=== PATIENT | female | born 1975 | race Caucasian/White ===

== ENCOUNTER 2016-08-10 05:36 | Inpatient (IN) | payer MEDICAID ==
[2016-08-10] VITALS (18 sets, daily range): BP systolic 101–145; BP diastolic 47–90; PULSE 69–107; TEMP 97.6–98.3
[~2016-08-10] VITALS: Ht 175.3 cm; Wt 120.5 kg
[~2016-08-10 05:36] MED LIST: AMOXICILLIN 8751 TAB PO; AMOXICILLIN875 MG PO; BIRTH CONTROL PILL; BUSPAR5 MG PO; IBIFON 600600 MG PO; LAMICTAL ODT50 MG MM; LEVAQUIN 5500 MG/TA1 PO; LEVEMIR100 U/ML SQ; NO HOME MEDICATIONS; NORCO 325 MG-51 TAB PO; NOVOLOG 100U100 U/M1 SC; PERCOCET 325 MG1 TA2 PO; PRENATAL MVI PO; PRENATAL1 TA1 PO; SPRINTEC 35 MCG1 TAB PO; WELLBUTRIN 100100 MG PO; WELLBUTRIN SR150 M1 PO; ZANTAC 150MG T150 MG PO; ZYRTEC5 MG PO
[2016-08-10 06:28] LABS: BASO % 0.4 % (0.0-2.0); EOS # 0.1 (0.0-0.7); EOS % 1.5 % (0-4.0); GRAN # 5.5 (1.4-6.5); GRAN % 64.8 % (42.2-75.2); LYMPH % 23.9 % (20.0-51.0); MEAN CELL VOLUME 80 fl (80.0-100.0); MEAN CORPUSCULAR HGB CONC 31 g/dl (33.0-37.0); MEAN PLATELET VOLUME 11.3 fl (7.4-10.4); MONO # 0.8 (0.1-0.6); MONO % 8.9 % (1.7-9.3); PLATELET COUNT 261 K/mm3 (130-400); RED BLOOD COUNT 3.78 M/mm3 (4.10-5.30); REDCELL DISTRIBUTION WIDTH-CV 16.3 % (11.5-14.5); WHITE BLOOD COUNT 8.5 K/mm3 (4.8-10.8)
[2016-08-10] MEDS ORDERED: NOVOLOG 100U100 U/M1 SQ (06:36)
[2016-08-10 06:37] LABS: HEMATOCRIT 30.3 % (37.0-47.0); HEMOGLOBIN 9.5 g/dl (12.5-16.0); MEAN CORPUSCULAR HEMOGLOBIN 25 pg (27.0-31.0)
[2016-08-10] MEDS ORDERED: CLARITIN D TAB1 TAB PO (06:37)
[2016-08-10] MEDS ORDERED: PEPCID 20MG TAB20 MG (06:37)
[2016-08-10] MEDS ORDERED: ZOVIRAX 200MG200 MG PO (06:41)
[2016-08-10] MEDS ORDERED: VENTOLIN0.09 MG IH (06:42)
[2016-08-10] MEDS ORDERED: IBU800 M1 PO (08:51)
[2016-08-10] MEDS ORDERED: PERCOCET 325 MG1 TA2 PO (08:51)
[2016-08-11 02:00] VITALS: BP 133/75; PULSE 98; TEMP 98.2
[2016-08-11 06:51] VITALS: BP 135/79; PULSE 95; TEMP 97.7
[2016-08-11 07:28] LABS: BASO % 0.2 % (0.0-2.0); EOS # 0.1 (0.0-0.7); EOS % 1.1 % (0-4.0); GRAN # 7.7 (1.4-6.5); GRAN % 77.3 % (42.2-75.2); LYMPH # 1.2 (1.2-3.4); LYMPH % 11.6 % (20.0-51.0); MEAN CELL VOLUME 83 fl (80.0-100.0); MEAN CORPUSCULAR HGB CONC 31 g/dl (33.0-37.0); MEAN PLATELET VOLUME 10.8 fl (7.4-10.4); MONO # 0.9 (0.1-0.6); MONO % 9.2 % (1.7-9.3); PLATELET COUNT 225 K/mm3 (130-400); RED BLOOD COUNT 3.39 M/mm3 (4.10-5.30); REDCELL DISTRIBUTION WIDTH-CV 16.4 % (11.5-14.5); WHITE BLOOD COUNT 9.9 K/mm3 (4.8-10.8)
[2016-08-11 07:29] LABS: HEMOGLOBIN 8.7 g/dl (12.5-16.0); MEAN CORPUSCULAR HEMOGLOBIN 26 pg (27.0-31.0)
[2016-08-11 17:27] VITALS: BP 129/93; PULSE 112; TEMP 97.8
[2016-08-11 20:00] VITALS: BP 119/79; PULSE 100; TEMP 98
[2016-08-12 09:10] VITALS: BP 137/91; PULSE 100; TEMP 97.9
== END 2016-08-12 11:45 | disposition home or self-care (01) | DRG 765 ==
LOC: OB 05:36
PROVIDERS: Obstetrics & Gynecology
PROC: 10D00Z1 Extraction of Products of Conception, Low, Open Approach (ICD-10-PCS; principal; 2016-08-10)
PROC: 0UB70ZZ Excision of Bilateral Fallopian Tubes, Open Approach (ICD-10-PCS; 2016-08-10)
DX: O34.211 Maternal care for low transverse scar from previous cesarean delivery (principal); O36.0130 Maternal care for anti-D [Rh] antibodies, third trimester, not applicable or unspecified; N85.8 Other specified noninflammatory disorders of uterus; O09.523 Supervision of elderly multigravida, third trimester; O99.824 Streptococcus B carrier state complicating childbirth; Z40.09 Encounter for prophylactic removal of other organ; O24.420 Gestational diabetes mellitus in childbirth, diet controlled; O99.02 Anemia complicating childbirth; D64.9 Anemia, unspecified; Z80.41 Family history of malignant neoplasm of ovary; Z3A.39 39 weeks gestation of pregnancy; Z37.0 Single live birth
CPT/HCPCS: J0690; J1885; J2175; J2270; J2370; J2405; J2590; J2790; J7120

== ENCOUNTER 2016-08-15 16:18 | Emergency (ER) | payer MEDICAID ==
[~2016-08-15] VITALS: Ht 175.3 cm; Wt 121.8 kg
[~2016-08-15 16:18] MED LIST changes: +CLARITIN D TAB1 TAB PO; +IBU800 M1 PO; +NOVOLOG 100U100 U/M1 SQ; +PEPCID 20MG TAB20 MG; +VENTOLIN0.09 MG IH; +ZOVIRAX 200MG200 MG PO
[2016-08-15 16:21] VITALS: TEMP 98.9
[2016-08-15 17:35] VITALS: BP 154/90; PULSE 85
== END 2016-08-15 17:35 | disposition home or self-care (01) ==
LOC: COL.ER 16:18
DX: O90.89 Other complications of the puerperium, not elsewhere classified (principal)

== ENCOUNTER 2017-03-02 07:21 | Emergency (ER) | payer MEDICAID ==
[~2017-03-02] VITALS: Ht 175.3 cm; Wt 109.1 kg
[2017-03-02 07:24] VITALS: BP 139/96; TEMP 98.1
[2017-03-02 08:09] LABS: BASO # 0.1 (0.0-0.2); BASO % 0.8 % (0.0-2.0); EOS # 0.3 (0.0-0.7); EOS % 4.2 % (0-4.0); GRAN # 3.2 (1.4-6.5); LYMPH # 2.4 (1.2-3.4); LYMPH % 36.9 % (20.0-51.0); MEAN CELL VOLUME 81 fl (80.0-100.0); MEAN CORPUSCULAR HGB CONC 31 g/dl (33.0-37.0); MEAN PLATELET VOLUME 10.5 fl (7.4-10.4); MONO # 0.6 (0.1-0.6); MONO % 8.8 % (1.7-9.3); PLATELET COUNT 376 K/mm3 (130-400); REDCELL DISTRIBUTION WIDTH-CV 15.1 % (11.5-14.5); WHITE BLOOD COUNT 6.5 K/mm3 (4.8-10.8)
[2017-03-02 08:13] LABS: HEMATOCRIT 36.3 % (37.0-47.0); HEMOGLOBIN 11.3 g/dl (12.5-16.0); MEAN CORPUSCULAR HEMOGLOBIN 25 pg (27.0-31.0)
[2017-03-02 08:18] LABS: ALBUMIN 4.2 gm/dL (3.5-5.0); BILIRUBIN,TOTAL 0.5 mg/dL (0.0-1.0); CALCIUM 9.2 mg/dL (8.4-10.2); CREATININE, serum 0.75 mg/dL (0.52-1.25); POTASSIUM 3.7 mmol/L (3.4-5.0); TOTAL PROTEIN 7.3 gm/dL (6.4-8.2)
[2017-03-02 08:22] LABS: PH 5 (5-8); SQUAMOUS EPITHELIAL 0-2 /hpf; URINE APPEARANCE Clear; URINE BACTERIA None Seen /hpf; URINE BILIRUBIN Negative (NEGATIVE); URINE BLOOD 3+ (NEGATIVE); URINE COLOR Yellow; URINE GLUCOSE Negative (NEGATIVE); URINE KETONE Negative (NEGATIVE); URINE RBC >50 /hpf; URINE UROBILINOGEN Negative (NEGATIVE); URINE WBC 0-2 /hpf
[2017-03-02] MEDS ORDERED: PERCOCET 325 MG1 TA2 PO (10:00)
[2017-03-02] MEDS ORDERED: ZOFRAN 4MG T4 MG/TAB PO (10:00)
[2017-03-02 10:41] VITALS: PULSE 71
== END 2017-03-02 10:40 | disposition home or self-care (01) ==
LOC: COL.ER 07:21
PROVIDERS: Nurse Practitioner
DX: N20.0 Calculus of kidney (principal)
CPT/HCPCS: J1170; J1885; J2405; J7030; Q9967

== ENCOUNTER 2018-02-01 11:16 | Emergency (ER) | payer BC, MEDICAID ==
[~2018-02-01] VITALS: Ht 175.3 cm; Wt 111.3 kg
[~2018-02-01 11:16] MED LIST changes: +ZOFRAN 4MG T4 MG/TAB PO
[2018-02-01 11:19] VITALS: TEMP 97.4
[2018-02-01] MEDS ORDERED: WELLBUTRIN SR200 MG PO (11:44)
[2018-02-01 11:49] LABS: BASO # 0.1 (0.0-0.2); BASO % 0.8 % (0.0-2.0); EOS # 0.4 (0.0-0.7); EOS % 5.6 % (0-4.0); GRAN # 3.5 (1.4-6.5); GRAN % 56.1 % (42.2-75.2); HEMOGLOBIN 11.2 g/dl (12.5-16.0); LYMPH # 1.7 (1.2-3.4); LYMPH % 27.3 % (20.0-51.0); MEAN CELL VOLUME 79 fl (80.0-100.0); MEAN CORPUSCULAR HEMOGLOBIN 25 pg (27.0-31.0); MEAN CORPUSCULAR HGB CONC 31 g/dl (33.0-37.0); MEAN PLATELET VOLUME 9.7 fl (7.4-10.4); MONO # 0.6 (0.1-0.6); MONO % 9.9 % (1.7-9.3); PLATELET COUNT 319 K/mm3 (130-400); RED BLOOD COUNT 4.57 M/mm3 (4.10-5.30); REDCELL DISTRIBUTION WIDTH-CV 16.6 % (11.5-14.5)
[2018-02-01 11:50] LABS: HEMATOCRIT 35.9 % (37.0-47.0)
[2018-02-01 12:03] LABS: ALANINE AMINOTRANSFERASE 23 U/L (9-52); ALBUMIN 3.9 gm/dL (3.5-5.0); ALKALINE PHOSPHATASE 63 U/L (50-136); ANION GAP 8 mmol/L (7-16); AST,SGOT 19 U/L (15-37); BILIRUBIN,TOTAL 0.2 mg/dL (0.0-1.0); BLOOD UREA NITROGEN 13 mg/dL (7-17); C-REACTIVE PROTEIN 0.8 mg/dL (0.0-0.9); CALCIUM 9.4 mg/dL (8.4-10.2); CARBON DIOXIDE 28 mmol/L (22-30); CHLORIDE 102 mmol/L (98-107); CREATININE, serum 0.59 mg/dL (0.52-1.25); GLUCOSE 114 mg/dL (74-106); SODIUM 137 mmol/L (137-145); TOTAL PROTEIN 7.1 gm/dL (6.4-8.2)
[2018-02-01 12:12] LABS: TROPONIN-I < 0.012 ng/mL (0.000-0.034)
[2018-02-01 13:00] VITALS: BP 129/86; PULSE 72
== END 2018-02-01 13:00 | disposition home or self-care (01) ==
LOC: COL.ER 11:16
PROVIDERS: Emergency Medicine
DX: M54.12 Radiculopathy, cervical region (principal); R53.83 Other fatigue

== ENCOUNTER 2018-05-20 09:32 | Day surgery (SDC) | payer BC, MEDICAID ==
[~2018-05-20] VITALS: Ht 175.3 cm; Wt 115.9 kg
[~2018-05-20 09:32] MED LIST changes: +WELLBUTRIN SR200 MG PO
[2018-05-20 10:09] VITALS: BP 136/97; PULSE 84; TEMP 98.4
[2018-05-20] MEDS ORDERED: PROTONIX 40MG T40 MG PO (10:16)
[2018-05-20] MEDS ORDERED: ADVIL200 MG PO (10:17)
[2018-05-20] MEDS ORDERED: ZANTAC 150MG T150 MG PO (10:18)
[2018-05-20 11:40] VITALS: BP 117/83; PULSE 79; TEMP 97.8
[2018-05-20 11:45] VITALS: BP 120/86; PULSE 73
[2018-05-20 12:00] VITALS: BP 118/80; PULSE 75
[2018-05-20 12:15] VITALS: BP 112/87; PULSE 74
[2018-05-20 13:46] VITALS: BP 111/85; PULSE 76
== END 2018-05-20 12:25 | disposition home or self-care (01) ==
LOC: SDCO 09:32
DX: K21.0 Gastro-esophageal reflux disease with esophagitis (principal); K22.2 Esophageal obstruction; K44.9 Diaphragmatic hernia without obstruction or gangrene; Z80.0 Family history of malignant neoplasm of digestive organs; F41.9 Anxiety disorder, unspecified; F32.9 Major depressive disorder, single episode, unspecified; E11.9 Type 2 diabetes mellitus without complications; E66.9 Obesity, unspecified; Z68.37 Body mass index [BMI] 37.0-37.9, adult
CPT/HCPCS: OP; J2250; J2405; J3010; J7030

== ENCOUNTER → 2018-06-16 | Outpatient (CLI) | payer BC, MEDICAID ==
[~2018-06-16] MED LIST changes: +ADVIL200 MG PO; +PROTONIX 40MG T40 MG PO
== END ==
LOC: COL.RAD 06:48
DX: K21.9 Gastro-esophageal reflux disease without esophagitis (principal)
CPT/HCPCS: A9541

== ENCOUNTER 2018-06-28 08:01 | Outpatient (RCR) | payer BC, MEDICAID | END 2018-09-26 | disposition home or self-care (01) | LOC: WSST | DX: K21.9 Gastro-esophageal reflux disease without esophagitis (principal); R13.10 Dysphagia, unspecified ==

== ENCOUNTER 2020-09-23 14:07 | Emergency (ER) | payer MEDICAID ==
[~2020-09-23] VITALS: Ht 175.3 cm; Wt 104.5 kg
[~2020-09-23 14:07] MED LIST changes: +DOXYCYCLINE 10100 MG PO; +VYVANSE30 MG PO
[2020-09-23 14:37] VITALS: TEMP 98.3
[2020-09-23 16:33] LABS: BASO # 0.1 (0.0-0.2); BASO % 0.7 % (0.0-2.0); EOS # 0.6 (0.0-0.7); EOS % 7.5 % (0-4.0); GRAN # 4.2 (1.4-6.5); GRAN % 56.5 % (42.2-75.2); HEMOGLOBIN 10.1 g/dl (12.5-16.0); LYMPH % 26.7 % (20.0-51.0); MEAN CELL VOLUME 74 fl (80.0-100.0); MEAN CORPUSCULAR HEMOGLOBIN 22 pg (27.0-31.0); MEAN CORPUSCULAR HGB CONC 30 g/dl (33.0-37.0); MEAN PLATELET VOLUME 9.7 fl (7.4-10.4); MONO # 0.6 (0.1-0.6); MONO % 8.5 % (1.7-9.3); PLATELET COUNT 441 K/mm3 (130-400); RED BLOOD COUNT 4.57 M/mm3 (4.10-5.30); REDCELL DISTRIBUTION WIDTH-CV 17.5 % (11.5-14.5)
[2020-09-23 16:39] LABS: ALBUMIN 4.1 gm/dL (3.5-5.0); BILIRUBIN,TOTAL 0.3 mg/dL (0.0-1.0); CALCIUM 9.6 mg/dL (8.4-10.2); CREATININE, serum 0.6 (0.52-1.25); TOTAL PROTEIN 7.2 gm/dL (6.4-8.2)
[2020-09-23 16:41] LABS: HEMATOCRIT 33.7 % (37.0-47.0)
[2020-09-23 17:09] LABS: TSH w REFLEX 0.879 uIU/mL (0.465-4.680)
[2020-09-23] MEDS ORDERED: DRAMAMINE LESS25 MG PO (18:33)
[2020-09-23] MEDS ORDERED: VENTOLIN0.09 MG IH (18:34)
[2020-09-23 18:58] VITALS: BP 147/105; PULSE 77
== END 2020-09-23 18:59 | disposition home or self-care (01) ==
LOC: COL.ER 14:07
PROVIDERS: Physician Assistant
DX: H81.10 Benign paroxysmal vertigo, unspecified ear (principal); I10 Essential (primary) hypertension; R06.2 Wheezing; F98.8 Other specified behavioral and emotional disorders with onset usually occurring in childhood and adolescence
CPT/HCPCS: J7030

== ENCOUNTER 2021-05-03 03:42 | Emergency (ER) | payer SELFPAY ==
[~2021-05-03 03:42] MED LIST changes: +DRAMAMINE LESS25 MG PO
[2021-05-03 03:48] VITALS: TEMP 98.1
[2021-05-03] MEDS ORDERED: NORVASC 5MG5 MG/TAB (03:53)
[2021-05-03] MEDS ORDERED: FORFIVO XL450 MG (03:53)
[2021-05-03] MEDS ORDERED: VYVANSE40 MG (03:54)
[2021-05-03] MEDS ORDERED: VIIBRYD20 MG PO (03:55)
[2021-05-03] MEDS ORDERED: NATURAL IRON65 MG (03:56)
[2021-05-03] MEDS ORDERED: PRILOSEC 20MG20 MG PO (03:57)
[2021-05-03] MEDS ORDERED: FLONASE NASAL S16 GM NS (04:17)
[2021-05-03] MEDS ORDERED: PROAIR HFA0.09 MG/AC IH (04:17)
[2021-05-03 04:30] VITALS: BP 147/98; PULSE 69
== END 2021-05-03 04:30 | disposition home or self-care (01) ==
LOC: COL.ER 03:42
DX: I10 Essential (primary) hypertension (principal); T48.6X5A Adverse effect of antiasthmatics, initial encounter; K21.9 Gastro-esophageal reflux disease without esophagitis; Z79.899 Other long term (current) drug therapy

== ENCOUNTER 2021-05-07 05:47 | Emergency (ER) | payer MEDICAID ==
[~2021-05-07] VITALS: Ht 175.3 cm; Wt 109.1 kg
[~2021-05-07 05:47] MED LIST changes: +FLONASE NASAL S16 GM NS; +FORFIVO XL450 MG; +NATURAL IRON65 MG; +NORVASC 5MG5 MG/TAB; +PRILOSEC 20MG20 MG PO; +PROAIR HFA0.09 MG/AC IH; +VIIBRYD20 MG PO; +VYVANSE40 MG
[2021-05-07 05:57] VITALS: TEMP 97.8
[2021-05-07] MEDS ORDERED: PREDNISONE20 MG PO (06:55)
[2021-05-07 07:05] VITALS: BP 174/133; PULSE 76
== END 2021-05-07 07:05 | disposition home or self-care (01) ==
LOC: COL.ER 05:47
DX: K21.9 Gastro-esophageal reflux disease without esophagitis (principal); I10 Essential (primary) hypertension; Z87.891 Personal history of nicotine dependence; Z20.822 Contact with and (suspected) exposure to COVID-19; Z79.899 Other long term (current) drug therapy